=== PATIENT | female | born 2005 | race African-American/Black ===

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

== ENCOUNTER 2023-02-27 09:33 | Emergency (ER) | payer MEDICAID ==
[~2023-02-27] VITALS: Ht 165.1 cm; Wt 57.4 kg
[2023-02-27 09:50] VITALS: BP 122/52
[2023-02-27] MEDS ORDERED: CEPH-510 PO ×3 (11:04→11:13)
[2023-02-27] MEDS ORDERED: BACDST PO ×3 (11:04→11:13)
== END 2023-02-27 11:19 | disposition home or self-care (01) ==
LOC: ER 09:33
DX: L03.113 Cellulitis of right upper limb (principal); S60.861A Insect bite (nonvenomous) of right wrist, initial encounter; W57.XXXA Bitten or stung by nonvenomous insect and other nonvenomous arthropods, initial encounter; Y93.89 Activity, other specified; Y92.89 Other specified places as the place of occurrence of the external cause; Y99.8 Other external cause status

== ENCOUNTER 2024-04-01 10:02 | Emergency (ER) | payer MEDICAID ==
[~2024-04-01] VITALS: Ht 165.1 cm; Wt 54.4 kg
[~2024-04-01 10:02] MED LIST: BACDST PO; CEPH-510 PO
[2024-04-01] MEDS ORDERED: AUG875T PO (12:08)
[2024-04-01 12:18] VITALS: BP 99/60; TEMP 98.5
[2024-04-01 12:20] VITALS: PULSE 87; RESP 18; O2SAT 98
== END 2024-04-01 12:26 | disposition home or self-care (01) ==
LOC: ER 10:02
DX: H66.92 Otitis media, unspecified, left ear (principal); Z88.1 Allergy status to other antibiotic agents

== ENCOUNTER 2025-04-01 08:21 | Emergency (ER) | payer MEDICAID ==
[~2025-04-01] VITALS: Ht 165.1 cm; Wt 54.5 kg
[~2025-04-01 08:21] MED LIST changes: +AUG875T PO
[2025-04-01 09:12] VITALS: BP 118/73; PULSE 85; RESP 16; TEMP 98.1; O2SAT 85
[2025-04-01] MEDS: KETOROLAC TROMETH 30 MG/ML 1ML VIAL IM ONE (09:22)
--- NOTE | 2025-04-01 09:36 | ED.PDOC ---
History of Present Illness HPI Comments 19 year old Female presents to the ED for the c/c of Left Sided Facial Swelling. Possible cause: notes a possible small abscess to the LUQ that spontaneously drained yesterday Pt also states she has been experiencing Facial Swelling with an associated Frontal/Occipital Pressure OQUENDO that is rated as mild/moderate since last night. Pt notes of no pain to the face, just swelling at this point in time. Denies chest pain shortness of breath Denies inability to move neck, history of meningitis Denies difficulty swallowing nor persistent salivation Denies fevers chills night sweats Denies persistent cough, runny nose, congestion Denies loss of appetite, unintentional weight loss over the past 3 months Chief Complaint: Tooth Pain Time Seen by MD: 09:29 Primary Care Provider: NONE Reviewed Notes: Nurses Notes, Medications, Allergies Allergies: Coded Allergies: NO KNOWN ALLERGIES (Unverified , 09/05/10) Home Meds Active Scripts Chlorhexidine Gluconate (Mouth (CHLORHEXIDINE ORAL RINSE) 473 Ml So, 15 ML MT Q12HR for 10 Days, #200 ML 0 Refills Prov:NILSA TUCKER PAINT STRIPPER 04/01/25 Amoxicillin & Pot Clavulanate (AUGMENTIN TABLET) 875 Mg Tb, 875 MG PO BID for 7 Days, #14 TAB 0 Refills Prov:NILSA TUCKER PAINT STRIPPER 04/01/25 Amoxicillin & Pot Clavulanate (AUGMENTIN TABLET) 875 Mg Tb, 875 MG PO BID for 10 Days, #20 TAB Prov:FRAN LIU PAINT STRIPPER 04/01/24 Sulfamethoxazole W/Trimethopri (Bactrim Ds Tablet) 1 Tab Tb, 1 TAB PO BID for 10 Days, #20 TAB Prov:ARBEN FAUSTINP 02/27/23 Cephalexin ( Keflex 500) 500 Mg Cap, 1 CAP PO QID for 10 Days, #40 CAP Prov:ARBEN FAUSTINP 02/27/23 Information Source: Patient, Friend Mode of Arrival: Ambulatory Severity: Moderate Timing: Hours Duration: Since onset, Hours Prehospital treatment: None Past Medical History PAST MEDICAL HISTORY: Denies Surgical History: Denies all surgeries PRESIDENT PRACTICING UROLOGIST History: No Pertinent PRESIDENT PRACTICING UROLOGIST History Family History Family History: Unknown Social History Smoker: Non-Smoker Alcohol: Denies ETOH Use Drugs: Denies Drug Use Lives In: Home Constitutional: denies: chills, diaphoresis, fatigue, fever, malaise, sweats, weakness, others EENTM: reports: mouth swelling; denies: blurred vision, double vision, ear bleeding, ear discharge, ear drainage, ear pain, ear ringing, eye pain, eye redness, hearing loss, mouth pain, nasal discharge, nose bleeding, nose congestion, nose pain, photophobia, tearing, throat pain, throat swelling, voice changes, others Respiratory: denies: cough, hemoptysis, orthopnea, SOB at rest, shortness of breath, SOB with excertion, stridor, wheezing, others Cardiovascular: denies: chest pain, dizzy spells, diaphoresis, Dyspnea on exertion, edema, irregular heart beat, left arm pain, lightheadedness, palpitations, PND, syncope, others Gastrointestinal: denies: abdomen distended, abdominal pain, blood streaked bowels, constipated, diarrhea, dysphagia, difficulty swallowing, hematemesis, melena, nausea, poor appetite, poor fluid intake, rectal bleeding, rectal pain, vomiting, others Genitourinary: denies: abnormal vagina bleeding, burning, dyspareunia, dysuria, flank pain, frequency, hematuria, incontinence, pain, , vagina discharge, urgency, others Neurological: denies: dizziness, fainting, headache, left sided numbness, left sided weakness, numbness, paresthesia, pre-existing deficit, right sided numbness, right sided weakness, seizure, speech problems, tingling, tremors, weakness, others Musculoskeletal: denies: back pain, gout, joint pain, joint swelling, muscle pain, muscle stiffness, neck pain, others Integumetry: denies: bruises, change in color, change in hair/nails, dryness, laceration, lesions, lumps, rash, wounds, others Allergic/Immunocompromised: denies: Difficulty Healing, Frequent Infections, Hives, Itching, others Hematologic/Lymphatic: denies: anemia, blood clots, easy bleeding, easy bruising, swollen glands, others Endocrine: denies: excessive hunger, excessive sweating, excessive thirst, excessive urination, flushing, intolerance to cold, intolerance to heat, unexplained weight gain, unexplained weight loss, others Psychiatric: denies: anxiety, bipolar disorder, depression, hopeless, panic disorder, schizophrenia, sleepless, suicidal, others All Other Systems: Reviewed and Negative Physical Exam General Appearance: No Apparent Distress, Normal HEENT: Normal ENT Inspection, Pharynx Normal, TMs Normal, Other (MMM, [place] Midline, No Stawberry Tongue. 1x1 round cm abscess to tooth number 27. Drained. No signs of gingivitis. No signs of subluxation. Tooth intact and no signs of dental caries) Neck: Full Range of Motion, Non-Tender, Normal, Normal Inspection Respiratory: Chest Non-Tender, Lungs Clear, No Accessory Muscle Use, No Respira tory Distress Cardiovascular: No Edema, No JVD, Normal Peripheral Pulses Breast Exam: Deferred Gastrointestinal: Non Tender, No Pulsatile Mass, Soft Genitalia: Deferred Pelvic: Deferred Rectal: Deferred Extremities: No calf tenderness, Non-tender, No pedal edema Musculoskeletal : Apperance: Normal Neurologic: Alert, No Motor Deficits, Normal Mood Cerebellar Function: Normal Reflexes: Normal Skin: Dry, Normal Color, Warm Lymphatic: No Adenopathy Was a procedure done? Was a procedure done?: No Differential Dx Considerations may include: abscess, cellulitis, carries X-Ray, Labs, Meds, VS Vital Signs Date Time Temp Pulse Resp B/P (MAP) Pulse Ox O2 Delivery O2 Flow Rate FiO2 04/01/25 09:12 98.1 85 16 118/73 (88) 98 98.1 04/01/25 09:12 85 16 85 Room Air 04/01/25 08:38 98.1 85 16 118/73 (88) 98 98.1 Current Medications Medications (Trade) Dose Ordered Sig/Elinor Route Start Time Stop Time Status Last Admin Ketorolac Tromethamine (Toradol Injection) 30 mg ONCE ONCE IM 04/01/25 09:15 04/01/25 09:16 DC 04/01/25 09:22 X-Ray, Labs, Meds, VS Comment 19 year old Female presents to the ED for the c/c of Left Sided Facial Swelling. Patient arrives alert and oriented, ABC's intact, afebrile, vital signs stable, saturating well in room air Findings consistent with periapical abscess Afebrile, vitals within normal limits. Exam as above and airway fully patent and in no respiratory distress. The patient has no neck swelling, no dysphonia or hoarseness, no lymphadenopathy. No trismus or swollen tongue to suggest Neno's angina. No overt e/o peritonsillar abscess or retropharyngeal abscess. No overt e/o deep space infection; nontoxic appearing and tolerating PO. Non-focal neuro exam with low suspicion for Lemierres. No pain with percussion, low suspicion for periapical abscess. No mastoid tenderness so do not suspect mastoiditis and no pain with manipulation of ear to suggest otitis externa. Trial antibiotics with cautious return precautions discussed w/ full understanding. Additional MDM Review of External, Non-ED records: External records reviewed. Discussion with independent historian (EMS, family) history obtained from the patient/parents (if applicable) at bedside Chronic conditions affecting care: None Social determinants of health affecting care: None Consideration of admission (observation or admission): I considered escalation of care to admission for this patient, however given the reassuring workup, the patient is safe for outpatient management. Discussion with the Radiology: No Tests considered but not performed: Prescription medication considered but not given: Time of 1ST Reevaluation: 09:59 Reevaluation 1ST: Unchanged Patient Education/Counseling: Diagnosis, Treatment Family Education/Counseling: No Family Present Departure 1 Departure Time of Disposition: 09:39 Impression: Primary Impression: Periapical abscess Disposition: 01 HOME / SELF CARE / HOMELESS Condition: Stable e-Prescriptions Chlorhexidine Gluconate (Mouth (CHLORHEXIDINE ORAL RINSE) 473 Ml So 15 ML MT Q12HR for 10 Days, #200 ML 0 Refills Prov: NILSA TUCKER NP 04/01/25 Amoxicillin & Pot Clavulanate (AUGMENTIN TABLET) 875 Mg Tb 875 MG PO BID for 7 Days, #14 TAB 0 Refills Prov: NILSA TUCKER PAINT STRIPPER 04/01/25 Critical Care Note Critical Care Time?: No Stability Stability form required: No Heart Score Heart Score: Heart Score Response (Comments) Value History N/A 0 EKG N/A 0 Age N/A 0 Risk Factors N/A 0 Troponin N/A 0 Total 0 I personally scribed for NILSA TUCKER NP ([email or web address]) on 04/01/25 at 09:36. Electronically submitted by Zay Murdock ([email or web address]). NILSA TUCKER NP Apr 01, 2025 09:36
[2025-04-01] MEDS ORDERED: CHL12OR MT (09:41)
[2025-04-01] MEDS ORDERED: AUG875T PO (09:41)
== END 2025-04-01 09:45 | disposition home or self-care (01) ==
LOC: ER 08:21
DX: K04.7 Periapical abscess without sinus (principal); Z79.899 Other long term (current) drug therapy
CPT/HCPCS: 96372; 99283; J1885